=== PATIENT | male | born 1990 | race Caucasian/White ===

== ENCOUNTER 2023-07-29 02:10 | Emergency (ER) | payer MEDICAID, SELFPAY ==
[2023-07-29 02:13] VITALS: BP 160/104; PULSE 71; RESP 16; TEMP 36.6; O2SAT 99; BMI 32.5
[2023-07-29 02:15] VITALS: BP 160/104; PULSE 71; RESP 16; TEMP 36.6; O2SAT 97
--- NOTE | 2023-07-29 02:23 | ED.VIS.DENTA ---
HPI History of Present Illness Chief Complaint: Dental Informant: patient Onset/Context/Timing Onset: Days Context: Gradual Onset Timing: Continuous Associated Symptoms Assocated Symptom - Dental: face swelling; Negative for fever Narrative Narrative: Patient presenting with dental pain for couple days gradually getting worse. Has a history of dental problems/decay/infections. Tells nursing that he has a supply of antibiotics and he takes them however he wants to which is basically a couple of pills for a couple of days until his pain goes away and then he stops. But now, he is out of antibiotics. He denies any systemic symptoms such as fevers or chills. Denies any discharge or bleeding from his teeth or gums. He states also he had an episode of mid chest discomfort for a couple hours yesterday but has not come back since then he denies any dyspnea. PFSH PFSH Medical History no medical history no medical history Home Medications clindamycin HCl 150 mg capsule 300 mg (2 x 150 mg) PO 4X/DAY #80 CAPSULES 07/29/23 [Rx Last Taken Unknown] hydrocodone-acetaminophen 5-325mg 5mg-325mg 1 tab PO Q6H PRN pain 3 days #10 TABLETS 07/29/23 [Rx Last Taken Unknown] Allergy/AdvReac Type Severity Reaction Status Date / Time diphenhydramine Allergy NEEDS Verified 07/29/23 02:12 [From Benadryl] FOLLOW-UP Penicillins Allergy NEEDS Verified 07/29/23 02:12 FOLLOW-UP Surgical History no surgical history Social History Smoking Status: Current every day smoker tobacco type: cigarettes ROS ROS ED Constitutional Constitutional ED: Denies chills or fever(s) Eyes Eyes: Denies change in vision or double vision ENT ENT ED: Reports dental pain; Denies sinus pain or throat swelling Cardiovascular Cardiovascular: Reports chest pain; Denies palpitations or syncope Respiratory/Chest Respiratory/Chest: Denies cough, dyspnea or dyspnea on exertion Gastrointestinal Gastrointestinal: Denies abdominal pain, diarrhea, nausea or vomiting Integumentary Denies abscess or rash Neurologic Neurologic: Denies headache(s), paresthesias or weakness EXAM Physical Exam Const Vital Signs: 07/29/23 02:13 07/29/23 02:15 07/29/23 02:33 Temperature 97.8 F 97.8 F 97.8 F Temperature Source Temporal Temporal Pulse Rate 71 71 84 Respiratory Rate 16 16 16 Blood Pressure 160/104 H 160/104 H 138/96 H Blood Pressure Mean 122 122 110 Pulse Ox 99 97 98 Positive well nourished and well developed General Appearance ED: well developed and NAD HEENT HEENT Narrative: Multifocal dental decay, the area in question is approximately tooth #3, decayed down to the gumline between 2 other also partially decayed teeth. Soft tissues above the affected tooth are very tender, patient keeps withdrawing and not able to feel very well but I do not see any significant external asymmetry or palpate any significant collection. Normal tongue no elevation no stridor, normal phonation. Face and Sinus: sinuses nontender Throat: posterior oropharynx normal Eyes PERRL and EOMs intact bilaterally Neck no lymphadenopathy and supple Chest Wall inspection of chest normal and palpation of chest normal Resp normal respiratory effort and clear to auscultation bilaterally Cardio regular rate, regular rhythm and no murmurs Rate: Negative for tachycardic GI normal to inspection, nondistended, normoactive bowel sounds and non-distended Neuro oriented x3 and CN's II-XII intact bilaterally Sensorium / Orientation: alert Gait (Neuro): normal gait Psych mental status grossly normal and thought process normal Skin no rashes or lesions noted and no wounds MDM MDM MDM Narrative Medical decision making narrative: Did an [facility] report which is negative, gave the patient prescription for clindamycin given an allergy of unknown reaction to penicillins, as well as Anton. Advised him to take the prescription as prescribed until completely gone with regards to the antibiotic, and to take a probiotic or yogurt along with it to prevent antibiotic associated diarrhea. Advise follow-up with a dentist soon as possible. Discharge Plan Triage Chief Complaint: Dental ED Provider: Lonnie Burns Dx/Rx/DC Orders Clinical Impression: Infected dental caries Instructions: ED Tooth Abscess Prescriptions: New clindamycin HCl 150 mg capsule 300 mg PO 4X/DAY Qty: 80 0RF hydrocodone-acetaminophen [hydrocodone-acetaminophen] 5-325 mg tablet 1 tab PO Q6H PRN (Reason: pain) 3 Days Qty: 10 0RF Primary Care Provider: Care Physician,No Primary Referrals: Dentist,Your [STAFF PHYSICIAN] - As soon as possible Disposition Disposition: Home, Self Care Discharge Date/Time: 07/29/23 02:43
[2023-07-29] MEDS: HYDROcodone Bitartrate/Apap 5/325 Tablet PO (02:31)
[2023-07-29] MEDS: Clindamycin HCl 150 MG Capsule 300 MG PO (02:31)
[2023-07-29] MEDS: Naproxen 250 MG Tablet 500 MG PO (02:31)
[2023-07-29 02:33] VITALS: BP 138/96; PULSE 84; RESP 16; TEMP 36.6; O2SAT 98
== END 2023-07-29 02:43 | disposition home or self-care (01) ==
PROVIDERS: Emergency Provider Emergency Medicine; Visit Provider Emergency Medicine
DX: K02.9 Dental caries, unspecified (principal); F17.210 Nicotine dependence, cigarettes, uncomplicated
CPT/HCPCS: 99283

== ENCOUNTER 2023-10-29 18:27 | Emergency (ER) | payer MEDICAID, SELFPAY ==
[2023-10-29 18:27] VITALS: BP 117/82; PULSE 65; RESP 16; TEMP 36.6; O2SAT 99; BMI 24.4
--- NOTE | 2023-10-29 19:08 | ED.VIS.DENTA ---
HPI History of Present Illness Chief Complaint: Dental Narrative Narrative: 33-year-old male who denies significant past medical history except for being a smoker presents with dental pain that has had for the last few months. He states he was seen in the emergency department a few months ago, was not able to follow-up with a dentist. He is having pain in his right upper jaw. He denies any fever or chills, no swelling of his face, no other symptoms. His pain has progressed and gotten worse over the last 2 days. He presents with his fianc?e because although they have an appointment with a dentist tomorrow, he is having significant pain in his right upper jaw. PFSH PFSH Home Medications ?Medication ?Instructions ?Recorded ?Last Taken ?Type clindamycin HCl 150 mg capsule 300 mg (2 x 150 mg) PO 4X/DAY #80 07/29/23 Unknown Rx CAPSULES hydrocodone-acetaminophen 5-325mg 1 tab PO Q6H PRN PRN Pain 3 days 07/29/23 Unknown Rx 5mg-325mg #10 TABLETS clindamycin HCl 300 mg capsule 300 mg PO Q6H #40 CAPSULES 10/29/23 Unknown Rx (Cleocin HCl) Allergy/AdvReac Type Severity Reaction Status Date / Time diphenhydramine (From Allergy NEEDS Verified 10/29/23 18:28 Benadryl) FOLLOW-UP Penicillins Allergy NEEDS Verified 10/29/23 18:28 FOLLOW-UP Social History Smoking Status: Current every day smoker tobacco type: cigarettes ROS ROS ED ROS Narrative Focused review of systems reveals pain in right upper jaw and pain in teeth of right upper jaw. No fevers or chills, no nausea or vomiting, no neck pain or difficulty swallowing. EXAM Physical Exam Narrative Exam Narrative: Afebrile. Vital signs noted. Regular rate and rhythm. Lungs clear to auscultation bilaterally. Abdomen soft nontender with normoactive bowel sounds. Nontoxic-appearing. Dental inspection/inspection of the mouth reveals areas where he is missing teeth, but there is a large dental carry in the first molar with root exposure. No fluctuance of the gum. Airway is patent. No drooling or trismus. No meningismus. No Calvin angina. Const Vital Signs: 10/29/23 18:27 Temperature 98 F Temperature Source Temporal Pulse Rate 65 Respiratory Rate 16 Blood Pressure 117/82 H Blood Pressure Mean 93 Pulse Ox 99 Oxygen Delivery Method Room Air MDM MDM MDM Narrative Medical decision making narrative: I reviewed the patient's prior records. He was given prescriptions for clindamycin and for 10 tablets of Alexander. Clindamycin was used secondary to his penicillin allergy. He was told that narcotic pain medication for dental pain should come from the dentist after tooth extraction, and he will take [id number] medications. However, he was given 1 dose of clindamycin here and 1 Alexander tablet as he has follow-up with a dentist tomorrow. I did write him a prescription for antibiotics. Smoking cessation was discussed. I feel he can be discharged safely home with follow-up with the dentist tomorrow. Return instructions to the emergency department were reviewed. Disposition is discharged home in stable condition. Discharge Plan Triage Chief Complaint: Dental ED Provider: Cecilio Eng Dx/Rx/DC Orders Clinical Impression: Pain due to dental caries, Infected dental caries Instructions: ED Dental Pain, ED Dental Cavity, ED Dental Abscess Prescriptions: New clindamycin HCl [Cleocin HCl] 300 mg capsule 300 mg PO Q6H Qty: 40 0RF No Action clindamycin HCl 150 mg capsule 300 mg PO 4X/DAY Qty: 80 0RF hydrocodone-acetaminophen [hydrocodone-acetaminophen] 5-325 mg tablet 1 tab PO Q6H PRN PRN (Reason: Pain) 3 Days Qty: 10 0RF Primary Care Provider: Care Physician,No Primary Referrals: Care Physician,No Primary [Primary Care Provider] - Activity Restrictions/Additional Instructions: Follow-up with the dentist tomorrow as scheduled. Take the antibiotics. Stop smoking. Print Language: Czech Disposition Disposition: Home, Self Care
[2023-10-29] MEDS: HYDROcodone Bitartrate/Apap 5/325 Tablet PO (19:17)
[2023-10-29] MEDS: Clindamycin HCl 150 MG Capsule 300 MG PO (19:17)
[2023-10-29 19:18] VITALS: BP 96/68; PULSE 60; RESP 18; TEMP 36.8; O2SAT 98
== END 2023-10-29 19:21 | disposition home or self-care (01) ==
PROVIDERS: Emergency Provider Emergency Medicine; Visit Provider Emergency Medicine
DX: K02.9 Dental caries, unspecified (principal); F17.210 Nicotine dependence, cigarettes, uncomplicated; K08.89 Other specified disorders of teeth and supporting structures
CPT/HCPCS: 99282

== ENCOUNTER 2024-02-27 21:42 | Emergency (ER) | payer MEDICAID, SELFPAY ==
[2024-02-27 21:42] VITALS: BP 130/89; PULSE 69; RESP 16; TEMP 36.6; O2SAT 98; BMI 23.2
== END 2024-02-28 00:18 | disposition left against medical advice (07) ==
LOC: ED 22:26
PROVIDERS: Emergency Provider Emergency Medicine; Referring Provider Emergency Medicine; Visit Provider Emergency Medicine
DX: J06.9 Acute upper respiratory infection, unspecified (principal); F17.210 Nicotine dependence, cigarettes, uncomplicated
CPT/HCPCS: 71046; 99283

== ENCOUNTER 2024-05-04 19:59 | Emergency (ER) | payer MEDICAID, SELFPAY ==
[2024-05-04 19:59] VITALS: BP 138/89; PULSE 92; RESP 18; TEMP 36.6; O2SAT 100; BMI 24.8
[2024-05-04 21:01] VITALS: BP 168/91; PULSE 81; RESP 18; TEMP 36.6; O2SAT 100
[2024-05-04] MEDS: Clindamycin HCl 150 MG Capsule 450 MG PO (21:21)
[2024-05-04] MEDS: Ibuprofen 600 MG Tablet PO (21:22)
[2024-05-04] MEDS: Acetaminophen 500 MG Tablet 1000 MG PO (21:22)
--- NOTE | 2024-05-04 21:34 | ED.VIS.DENTA ---
HPI History of Present Illness Chief Complaint: Dental Informant: patient Narrative Narrative: Worsening left-sided dental pain last 2 days. Hot and cold sensitivities. No fevers. No trouble swallowing. Tobacco history. History of right sided dental pain in the past was seen in the ED previously. Unable to get in with dentist due to not having insurance. He states he sees job and family services this coming week. Cannot recall last time he seen a dentist. Prior similar symptoms: Yes PFSH PFSH Medical History Hernia Home Medications ?Medication ?Instructions ?Recorded ?Last Taken ?Type clindamycin HCl 150 mg capsule 450 mg (3 x 150 mg) PO TID #90 05/04/24 Unknown Rx CAPSULES ibuprofen 600 mg tablet 600 mg PO Q6H PRN PRN pain #20 05/04/24 Unknown Rx TABLETS Allergy/AdvReac Type Severity Reaction Status Date / Time diphenhydramine (From Allergy NEEDS Verified 05/04/24 19:59 Benadryl) FOLLOW-UP Penicillins Allergy NEEDS Verified 05/04/24 19:59 FOLLOW-UP Social History Smoking Status: Current every day smoker tobacco type: cigarettes ROS ROS ED Constitutional Constitutional ED: Denies chills, fever(s) or sweats ENT ENT ED: Reports other Details: Dental pain, facial swelling ; Denies sore throat Cardiovascular Cardiovascular: Denies chest pain Respiratory/Chest Respiratory/Chest: Denies cough Gastrointestinal Gastrointestinal: Denies abdominal pain, diarrhea, nausea or vomiting Neurologic Neurologic: Denies headache(s) EXAM Physical Exam Const Vital Signs: 05/04/24 19:59 05/04/24 21:01 05/04/24 21:44 Temperature 98 F 97.9 F 97.9 F Temperature Source Oral Temporal Pulse Rate 92 81 81 Respiratory Rate 18 18 18 Blood Pressure 138/89 H 168/91 H 166/91 H Blood Pressure Mean 105 116 116 Pulse Ox 100 100 100 Oxygen Delivery Method Room Air Room Air Positive well nourished and well developed General Appearance ED: well developed and NAD HEENT Reports moist mucous membranes HEENT Narrative: Diffuse dental decay. Tender tooth percussion #14. There is no sublingual edema, no trismus. No focal gum fluctuance upper or lower. normocephalic and atraumatic Eyes General Eye ED: Yes normal appearance of both eyes Neck full ROM Chest Wall Chest: Negative for tenderness Resp normal respiratory effort and normal air movement Effort and Inspection: symmetric chest movement; Negative for respiratory distress Cardio regular rate, regular rhythm and no murmurs Peripheral Pulses: pulses 2+ throughout GI normal to inspection, nondistended, normoactive bowel sounds and non-tender Palpation: Negative for guarding or rebound tenderness present Extremity normal to inspection General Extremety ED: Negative for edema or tenderness General Extremity: Negative for edema Neuro oriented x3 and no sensory deficits noted Sensorium / Orientation: awake and alert Skin no rashes or lesions noted and no wounds MDM MDM MDM Narrative Medical decision making narrative: Interventions / MDM: Differential diagnosis: Dental cavities, dentalgia Diagnosis considered but do not suspect: No clinical Calvin angina My EKG interpretation: N/A Imaging independently reviewed and interpreted by myself: N/A External documents reviewed: N/A Test considered but not ordered:N/A ED course: Vital signs stable nontoxic. Diffuse dental decay with dentalgia. Allergies to penicillin. Started clindamycin. Given Motrin and Tylenol in the ED. He is given dentist list to call for follow-up for definitive treatment plans. All questions were answered. Re-evaluation: stable Disposition discussed with patient/family/significant other: Patient Case discussed with consulting clinician: N/A This note was generated with [employer] dictation software. It may contain incorrect words, spelling, and punctuation that were not noted in checking the note before signing. Discharge Plan Triage Chief Complaint: Dental ED Provider: Zeferino Chaudhry Dx/Rx/DC Orders Clinical Impression: Dental caries, Dentalgia Instructions: ED Dental Pain, ED Dental Cavity Prescriptions: New clindamycin HCl 150 mg capsule 450 mg PO TID Qty: 90 0RF ibuprofen 600 mg tablet 600 mg PO Q6H PRN PRN (Reason: pain) Qty: 20 0RF Primary Care Provider: Care Physician,No Primary Referrals: Care Physician,No Primary [Primary Care Provider] - Activity Restrictions/Additional Instructions: Take antibiotic as prescribed. Continue ibuprofen. Call dental to this to try to get in with dentist for evaluation for definitive treatment. Print Language: Nigerian Disposition Disposition: Home, Self Care Discharge Date/Time: 05/04/24 21:45
--- NOTE | 2024-05-04 21:35 | ED.RN ---
pt voiced that he was not impressed with the doctor and feels he doesn't know what he is talking about. Pt instructed that the doctor is knowledgeable,but he is no dentist and the pt really needs to see a dentist.pt states he doesn't have insurance. This nurse spoke to him about free clinics. Pt stated,i'm telling you I'm not going to a free clinic,I have heard all about those places. Pt given information on the free clinic any ways in case he changes his mind. Pt also stated that he feels he is being discriminated against because he was here once before and left because the wait was too long.This nurse assured him that we do not discriminate . This nurse instructed the pt that his concerns will be told to the doctor and maybe he can have a nerve block. pt refused that and stated, I have motrin at home and I'll be back tonight. made aware of the above.
[2024-05-04 21:44] VITALS: BP 166/91; PULSE 81; RESP 18; TEMP 36.6; O2SAT 100
== END 2024-05-04 21:45 | disposition home or self-care (01) ==
PROVIDERS: Emergency Provider Emergency Medicine; Visit Provider Emergency Medicine
DX: K08.89 Other specified disorders of teeth and supporting structures (principal); F17.210 Nicotine dependence, cigarettes, uncomplicated; K02.9 Dental caries, unspecified

== ENCOUNTER 2024-06-24 20:15 | Emergency (ER) | payer MEDICAID, SELFPAY ==
[2024-06-24 20:16] VITALS: BP 135/96; PULSE 94; RESP 15; TEMP 36.7; O2SAT 100; BMI 25.8
== END 2024-06-24 21:01 | disposition left against medical advice (07) ==
LOC: ED 21:04
DX: R10.9 Unspecified abdominal pain (principal)

== ENCOUNTER 2024-11-28 21:00 | Emergency (ER) | payer MEDICAID, SELFPAY ==
[2024-11-28 21:02] VITALS: BP 122/81; PULSE 73; RESP 18; TEMP 36.8; O2SAT 97; BMI 29.2
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
== END 2024-11-28 22:17 | disposition left against medical advice (07) ==
PROVIDERS: Emergency Provider Emergency Medicine; Visit Provider Emergency Medicine
DX: H10.9 Unspecified conjunctivitis (principal); F17.210 Nicotine dependence, cigarettes, uncomplicated
CPT/HCPCS: 99283

== ENCOUNTER 2024-12-23 09:09 | Emergency (ER) | payer MEDICAID, SELFPAY ==
[2024-12-23 09:09] VITALS: BP 117/80; PULSE 71; RESP 14; TEMP 36.3; O2SAT 98
--- NOTE | 2024-12-23 09:32 | EX.ED.VIS.EY ---
HPI History of Present Illness Chief Complaint: Eye Problem Informant: patient Onset/Context/Timing Location: Bilateral Eyes Onset: Weeks Context: Gradual Onset Timing: Continuous Worsened by: Nothing Relieved by: Nothing Associated Symptoms Associated Symptoms - Eyes: Burning, Drainage (White), Foreign body sensation and Itching; Negative for Crusting, Eyelid swelling, Matting, Pain, Photophobia or Redness Visual Changes: bilateral: Blurred vision History of injury: No Visual correction: None Narrative Narrative: Patient presents with possible eye infection that has been constant for the past week or so. Patient states she noted some white drainage coming from both eyes. Patient states he feels like there may be something in his eyes. Patient admits to some burning and itching. Patient admits to some blurry vision at times. Patient denies any trauma or injury. Patient states she does not wear glasses or contacts. [facility] Medical History Hernia Home Medications ?Medication ?Instructions ?Recorded ?Last Taken ?Type clindamycin HCl 150 mg capsule 450 mg (3 x 150 mg) PO TID #90 05/04/24 Unknown Rx CAPSULES ibuprofen 600 mg tablet 600 mg PO Q6H PRN PRN pain #20 05/04/24 Unknown Rx TABLETS Allergy/AdvReac Type Severity Reaction Status Date / Time diphenhydramine (From Allergy NEEDS Verified 12/23/24 09:10 Benadryl) FOLLOW-UP Penicillins Allergy NEEDS Verified 12/23/24 09:10 FOLLOW-UP Surgical History History of herniorrhaphy Social History housing: house Smoking Status: Current every day smoker tobacco type: cigarettes ROS ROS ED Constitutional Constitutional ED: Denies chills or fever(s) Eyes Eyes: Reports blurry vision; Denies change in vision ENT ENT ED: Denies rhinorrhea or sore throat Cardiovascular Cardiovascular: Denies chest pain or palpitations Respiratory/Chest Respiratory/Chest: Denies cough or dyspnea Gastrointestinal Gastrointestinal: Denies nausea or vomiting Genitourinary Genitourinary ED: Denies dysuria or hematuria Musculoskeletal Musculoskeletal: Denies back pain or neck pain Integumentary Denies abscess or rash Neurologic Neurologic: Denies headache(s) or weakness Allergic/Immunologic Allergic/Immunologic ED: Denies mouth swelling or urticaria EXAM Physical Exam Const Vital Signs: 12/23/24 09:09 Temperature 97.3 F L Temperature Source Temporal Pulse Rate 71 Respiratory Rate 14 Blood Pressure 117/80 Blood Pressure Mean 92 Pulse Ox 98 Oxygen Delivery Method Room Air Positive well nourished and well developed Constitutional Narrative: Patient was texting on his phone on my exam. General Appearance ED: well developed and NAD HEENT atraumatic Eyes Eyes Narrative: Pupils are equal, round, reactive to light bilaterally. Extraocular muscles are intact. Conjunctiva was slightly injected bilaterally. There are no foreign bodies noted. Anterior chamber was clear. There is no hyphema noted. Funduscopic examination was benign. There is no tenderness over the periorbital area. Patient was able to visualize his phone and use it without difficulty. Neck supple and no JVD Resp normal respiratory effort and clear to auscultation bilaterally Cardio regular rate and regular rhythm Neuro oriented x3, CN's II-XII intact bilaterally, moves all extremities and no sensory deficits noted Sensorium / Orientation: alert Motor Exam: strength 5/5 throughout MDM MDM MDM Narrative Medical decision making narrative: Patient was advised that this could be conjunctivitis. Patient was advised he could be bacterial or viral. Patient was given erythromycin ophthalmic ointment and instructed to apply to both eyes 4 times daily. Patient was instructed to follow-up with his primary care physician or pharmaceutical sales in 2 to 3 days. Patient was instructed to return if worse in any way. Patient understood and was agreeable with the plan. All questions were answered. Discharge Plan Triage Chief Complaint: Eye Problem ED Provider: Francisco Javier Churchill Dx/Rx/DC Orders Clinical Impression: Conjunctivitis, Tobacco use disorder Instructions: ED Conjunctivitis, Nonspecific Prescriptions: No Action clindamycin HCl 150 mg capsule 450 mg PO TID Qty: 90 0RF ibuprofen 600 mg tablet 600 mg PO Q6H PRN PRN (Reason: pain) Qty: 20 0RF Primary Care Provider: Care Physician,No Primary Referrals: Francisco Javier Walsh MD [Med Staff - Supervisor Type Bar And Segment] - 3-5 Days Care Physician,No Primary [Primary Care Provider] - Activity Restrictions/Additional Instructions: Apply the antibiotic ointment to both as 4 times daily. Print Language: Bhutanese Disposition Disposition: Home, Self Care
[2024-12-23] MEDS: Erythromycin Ophthalmic (NSY) 1 GM OPTH.TUBE 1 APPLIC EACH EYE (09:52)
[2024-12-23 09:54] VITALS: BP 129/61; PULSE 91; RESP 18; TEMP 37.1; O2SAT 99
== END 2024-12-23 09:55 | disposition home or self-care (01) ==
PROVIDERS: Emergency Provider Emergency Medicine; Visit Provider Emergency Medicine
DX: H10.9 Unspecified conjunctivitis (principal); F17.210 Nicotine dependence, cigarettes, uncomplicated
CPT/HCPCS: 99282

== ENCOUNTER 2025-01-07 20:57 | Emergency (ER) | payer MEDICAID, SELFPAY ==
[2025-01-07 20:57] VITALS: BP 120/86; PULSE 85; RESP 15; TEMP 36.6; O2SAT 99; BMI 29.2
[2025-01-07] MEDS: Orphenadrine 100 MG Tablet PO (23:15)
--- NOTE | 2025-01-07 23:28 | RAD_ITS ---
PROCEDURE: THORACIC SPINE MIN 4 VIEWS 01/07/2025 REASON FOR EXAM: PAIN TECHNIQUE: Procedure Code: [id number] Modality: DX Procedure: THORACIC SPINE MIN 4 VIEWS COMPARISON: None. FINDINGS: No evidence of fracture or subluxation. Alignment is anatomic. No significant degenerative changes are appreciated. Visualized lung martínez are clear. Grossly unremarkable soft tissues. RAD/Thoracic Spine Min 4 Views IMPRESSION: Unremarkable thoracic spine radiographs. Reading Location: [facility]
--- NOTE | 2025-01-07 23:28 | RAD_ITS ---
PROCEDURE: LUMBAR SPINE 2 OR 3 VIEWS 01/07/2025 REASON FOR EXAM: PAIN TECHNIQUE: Procedure Code: RADSPLL Modality: DX Procedure: LUMBAR SPINE 2 OR 3 VIEWS COMPARISON: None. FINDINGS: No evidence of acute fracture or subluxation. Alignment is anatomic. Preserved vertebral body heights and disc spaces. No significant degenerative changes are appreciated. Normal bone mineralization. Grossly unremarkable soft tissues. RAD/Lumbar Spine 2 or 3 Views IMPRESSION: Unremarkable lumbar spine radiographs. Reading Location: [facility]
--- NOTE | 2025-01-08 00:15 | EDS_ITS ---
HPI History of Present Illness Chief Complaint: Back Informant: patient Narrative Narrative: Patient is a 34-year-old male with no clinically significant past medical history. He states over the past week he will notice pain in the right upper back and then he states that he will go to bed and that area will seem to be improved but he will then have pain in the low back. He states there has been no excessive activity or trauma. He denies any radiation of the pain. He states there has been no dysuria or hematuria. He denies any history of IV drug use. He states there is no loss of bowel or bladder control. He reports that he has waited roughly 1 week but his symptoms do not seem to be improving and secondary to this he comes in for evaluation Patient does state he is right-hand dominant Patient also denies any radiation of the pain in either the right upper back or low back [facility] Medical History Hernia Home Medications ?Medication ?Instructions ?Recorded ?Last Taken ?Type methocarbamol 500 mg tablet 1,000 mg (2 x 500 mg) PO 4 X/DAY 01/08/25 Unknown Rx PRN Muscle pain/spasm #56 tabs Allergy/AdvReac Type Severity Reaction Status Date / Time diphenhydramine (From Allergy NEEDS Verified 01/07/25 21:00 Benadryl) FOLLOW-UP Penicillins Allergy NEEDS Verified 01/07/25 21:00 FOLLOW-UP Surgical History History of herniorrhaphy Social History housing: house Smoking Status: Current every day smoker tobacco type: cigarettes ROS ROS ED Constitutional Constitutional ED: Denies chills or fever(s) ENT ENT ED: Denies sore throat Cardiovascular Cardiovascular: Denies chest pain Respiratory/Chest Respiratory/Chest: Denies cough or dyspnea Gastrointestinal Gastrointestinal: Denies abdominal pain, diarrhea, nausea or vomiting Genitourinary Genitourinary ED: Denies dysuria or hematuria Musculoskeletal Musculoskeletal: Reports back pain; Denies neck pain Integumentary Denies rash Neurologic Neurologic: Denies headache(s) or paresthesias Hematologic/Lymphatic Hematologic/Lymphatic: Denies easy bleeding or easy bruising EXAM Physical Exam Const Vital Signs: 01/07/25 20:57 01/08/25 00:20 Temperature 97.9 F 98.2 F Temperature Source Oral Pulse Rate 85 81 Respiratory Rate 15 16 Blood Pressure 120/86 H 122/84 H Blood Pressure Mean 97 96 Pulse Ox 99 98 Oxygen Delivery Method Room Air Positive well nourished and well developed General Appearance ED: well developed; Negative for pallor HEENT HEENT Narrative: Normocephalic atraumatic Eyes PERRL and EOMs intact bilaterally General Eye ED: Negative for scleral icterus Neck supple Neck Narrative: No bony deformity or step-off of the cervical spine; no midline tenderness to palpation Negative Spurling sign bilaterally Resp normal respiratory effort and clear to auscultation bilaterally Cardio regular rate and regular rhythm Back/Spine Back/Spine Narrative: No bony deformity or step-off of the thoracic spine. There is midline pain on palpation along the T4-T6 region. There is also right sided parathoracic muscle tension and spasm noted No bony deformity or step-off of the lumbar spine; there is pain with palpation along the midline at the L3-L4 region. There is bilateral paralumbar tension and spasm noted as well No clonus or Babinski. No saddle anesthesia. Negative straight leg raise. Patellar reflexes are +2-4 bilaterally Extremity normal to inspection Neuro oriented x3, CN's II-XII intact bilaterally and no sensory deficits noted Sensorium / Orientation: alert Motor Exam: strength 5/5 throughout Psych mental status grossly normal Skin no rashes or lesions noted and no wounds Skin Narrative: No overlying soft tissue changes to suggest trauma or infection General Skin Exam: Negative for jaundice or pallor MDM MDM MDM Narrative Medical decision making narrative: Patient arrived to ER with stable vitals and reported recurrent symptoms in the upper and lower back. He denies any recent trauma and there are no signs of this and therefore I have low concern for compression fracture or spondylol isthesis. However as he does have midline pain this is a possibility so x-rays of the thoracic and lumbar spine will be obtained. There is muscle tension and spasm noted indicating that his symptoms are most likely musculoskeletal. He denies red flag symptoms such as loss of bowel or bladder control or IV drug use. He does not have cough or chest pain going against lung pathology such as pneumonia or pneumothorax. He does not have hematuria or dysuria going against pyelonephritis or kidney stone. He denies any recent surgeries or injections going against osteomyelitis/discitis. The x-rays revealed no acute findings which correlates with his physical exam and therefore he will be placed on a muscle relaxer and is otherwise safe Concern for nervous compression is low as there is no radicular symptoms History & Record Review Discussion w/independent historian: Patient Radiography Diagnostic Testing: Clinical Impression(s) from Imaging Studies Lumbar Spine X-Ray 01/07/25 23:28 IMPRESSION: Unremarkable lumbar spine radiographs. Reading Location: [id number] Thoracic Spine X-Ray 01/07/25 23:28 IMPRESSION: Unremarkable thoracic spine radiographs. Reading Location: [id number] X-ray of the lumbar spine as interpreted by the emergency medicine physician reveals no compression fracture or spondylolisthesis X-ray of the thoracic spine as interpreted by the emergency medicine physician reveals no compression fracture or spondylolisthesis or acute lung pathology such as pneumonia or pneumothorax Discharge Plan Triage Chief Complaint: Back ED Provider: Jose Jackson Dx/Rx/DC Orders Clinical Impression: Acute myofascial strain of lumbosacral region, Spasm of back muscles Instructions: ED Back Spasm, No Trauma, ED Back Sprain/Strain Prescriptions: New methocarbamol 500 mg tablet 1,000 mg PO 4X/DAY PRN (Reason: Muscle pain/spasm) Qty: 56 0RF Primary Care Provider: Care Physician,No Primary Referrals: Geovani Early MD [Med Staff - Active Staff, Family Practice] Care Physician,No Primary [Primary Care Provider, Medical] Activity Restrictions/Additional Instructions: Your x-ray showed no sign of compression fracture or malalignment of your spine or changes to your disc space going against degenerative disc disease or a bulging disc. Your history and exam is consistent with muscular tension and spasm. Use [id number] medications such as lidocaine patches or IcyHot coupled with the muscle relaxer to help resolve symptoms. Return to the ER should you have any further concerns Print Language: [place] Disposition Disposition: Home, Self Care Discharge Date/Time: 01/08/25 00:32
[2025-01-08 00:20] VITALS: BP 122/84; PULSE 81; RESP 16; TEMP 36.8; O2SAT 98
== END 2025-01-08 00:32 | disposition home or self-care (01) ==
PROVIDERS: Emergency Provider Emergency Medicine; Visit Provider Emergency Medicine
DX: S39.012A Strain of muscle, fascia and tendon of lower back, initial encounter (principal); M62.830 Muscle spasm of back; F17.210 Nicotine dependence, cigarettes, uncomplicated
CPT/HCPCS: 72074; 72100; 99282